=== PATIENT | male | born 1940 | race Caucasian/White ===

== ENCOUNTER 2019-02-10 18:39 | Emergency (ER) | payer OTHER ==
[~2019-02-10] VITALS: Ht 172.7 cm; Wt 81.6 kg
[2019-02-10] MEDS ORDERED: ATOR10TA PO (18:56)
[2019-02-10] MEDS ORDERED: OLME1TAB16 PO (18:56)
--- NOTE | 2019-02-10 19:20 | NUR ---
Dr. Mira ENGLISH MD at bedside to evaluate pt.
--- NOTE | 2019-02-10 19:27 | NUR ---
Patient discharged to home in stable conditon. Written and verbal after care instructions given. Patient verbalizes understanding of instructions. Pt left ER in stable gait. No acute distress noted. All belongings w pt. VSS.
[2019-02-10 19:33] VITALS: BP 158/72
== END 2019-02-10 19:33 | disposition home or self-care (01) ==
LOC: ER 18:39
DX: R51 Headache (principal); E78.5 Hyperlipidemia, unspecified; Z88.2 Allergy status to sulfonamides; Z79.899 Other long term (current) drug therapy; V49.9XXA Car occupant (driver) (passenger) injured in unspecified traffic accident, initial encounter; Y93.89 Activity, other specified; Y92.89 Other specified places as the place of occurrence of the external cause; Y99.8 Other external cause status
CPT/HCPCS: A4663